=== PATIENT | female | born 1940 | race Caucasian/White ===

== ENCOUNTER → 2024-04-09 15:17 | Outpatient (REF) | payer OTHER, SELFPAY | LOC: RAD 15:17 | PROVIDERS: ATTENDING PHYSICIAN Nurse Practitioner Family | DX: K59.09 Other constipation (principal) | CPT/HCPCS: 74019 ==

== ENCOUNTER 2025-03-15 01:08 | Inpatient (IN) | payer OTHER, SELFPAY ==
[2025-03-14 19:43] VITALS: BP 194/116
--- NOTE | 2025-03-14 21:34 | ED.GENMED ---
History of Present Illness
General
Chief Complaint: Medication Reaction
Source: patient and spouse
Exam Limitations: none
Time Seen by Provider: 03/14/25 21:12
Nursing documentation reviewed up to this point in time: agreed with
History of Present Illness
History of Present Illness:
85-year-old female with a past medical history of hypertension presents to the ER with her for evaluation of headache. Patient makes note that she has had recent issues with dental infection in her left upper molar�she was initially treated
for dental infection with amoxicillin in early January and then subsequently followed up with an prison keeper and was taken for a root canal; after this again was treated with amoxicillin. Has continued to have dental pain on the left and so
yesterday was seen and prescribed Flagyl at 500 mg 3 times daily; took 3 doses yesterday and 2 doses today. She says that today she has been feeling unwell all day. She describes a diffuse headache. She says that she has some stiffness in her
neck and back. She says she has nausea. She says she has a bad taste in her mouth. She has not had a fever. She denies any other acute issues. Came to the ER for assessment.
Past History
Past History
ED Past Medical History: HTN; Negative Asthma, NIDDM or DC
ED Past Surgical History: None
Social History
Tobacco: Non-smoker
Alcohol: None
Personal:
Living: with family
Family History
Family History: Negative Diabetes, Hypertension or CAD
Review of Systems
Review of Systems
All Other Systems: ROS reviewed and negative except as documented in HPI and ROS
Constitutional: Denies fever
Respiratory: Denies trouble breathing
Cardiac: Denies chest pain
ABD/GI: Reports nausea; Denies abdominal pain or vomiting
: Denies flank pain
Musculoskeletal: Reports neck pain and back pain
Skin: Denies itching or rash
Neurological: Reports headache; Denies dizzy
Phy Exam
Physical Exam
Physical Exam:
General: Awake, alert, oriented x3; nontoxic-appearing
Head: Normocephalic, atraumatic
Eyes: Conjunctiva normal, EOMI, pupils equal round and reactive to light bilaterally
Throat: Airway intact, handling secretions; generally good dentition, no swelling noted near left upper molar
Neck: Trachea midline, full range of motion, no meningeal signs, mild tenderness in the paraspinal musculature
Lungs: Clear to auscultation bilaterally, no wheezing, rales, rhonchi
Heart: Regular rate and rhythm, no murmurs, gallops, or rubs appreciated
Neuro: Cranial nerves intact, speech fluid without dysarthria, motor and sensory intact in all extremities
Skin: Warm and dry
Extremities: No edema noted
Scores
Heart Failure Risk
Heart Failure Risk Score: Not Applicable
Heart Score for Chest Pain Patients
STEMI patient?: Not applicable
Withdrawal Assessment of Alcohol
Withdrawal Assessment Completed?: Not applicable
Course
Orders/Labs/Results
Orders:
Orders
03/14/25 21:32
Ketorolac [Toradol] 15 mg IV NOW STA
03/14/25 21:33
CT Facial Bones W/ Iv Contrast Urgent
Comment:
Reason For Exam: left sided dental infection, headache
CT Head W/o Iv Contrast Urgent
Comment:
Reason For Exam: headache
0.9% Sodium Chloride 1000 ml [Nss] 1,000 ml IV BOLUS
03/14/25 21:58
CRP [C-Reactive Protein] Urgent
Complete Blood Count/With Diff Urgent
Comprehensive Metabolic Panel Urgent
ESR [Erythrocyte Sed Rate] Urgent
03/14/25 23:58
Osmolality, Random Urine Urgent
Date Specimen was Collected: 03/14/25
Time Specimen was Collected: 23:56
Urinalysis Reflex To Culture Urgent
Date Specimen was Collected: 03/14/25
Time Specimen was Collected: 23:56
Urine Sodium Urgent
Date Specimen was Collected: 03/14/25
Time Specimen was Collected: 23:56
03/15/25 00:08
Acetaminophen [Tylenol] 1,000 mg PO NOW STA
03/15/25 00:10
Amlodipine [Norvasc] 2.5 mg PO ONCE ONE
Abnormal Lab Results
03/14/25
21:58
RBC 4.17 L 10^6/uL
(4.20-5.40)
Hct 36.5 L %
(37.0-47.0)
MCH 31.7 H pg
(27.0-31.0)
Sodium 124 L mmol/L
(135-145)
Chloride 90 L mmol/L
(98-107)
Glucose 100 H mg/dl
(70-99)
03/14/25 21:58
03/14/25 21:58
Vital Signs
Initial and Last Documented VS:
Initial Vital Signs
Temp Pulse Resp BP Pulse Ox
36.8 C 95 15 194/116 100
03/14/25 19:43 03/14/25 19:43 03/14/25 19:43 03/14/25 19:43 03/14/25 19:43
Last Documented Vital Signs
Temp Pulse Resp BP Pulse Ox
36.8 C 95 15 182/84 100
03/14/25 19:43 03/14/25 19:43 03/14/25 19:43 03/15/25 00:07 03/15/25 00:07
MDM/Problems Addressed
Differential Diagnosis Includes:
Tension headache, medication side effect, meningitis, worsening dental infection, brain bleed/stroke, migraine
MDM/Problems Addressed:
85-year-old female presents for evaluation of headache associated with bad taste in her mouth, nausea, neck and back stiffness. Symptoms started today after initiating treatment with Flagyl yesterday for a dental infection. She is hypertensive but
has otherwise acceptable vital signs. Physical exam is as noted. Suspect this may be a side effect of the Flagyl. She does not necessarily appear meningeal at this point in time despite her report of some neck stiffness. Will plan to check CT to
head and face to rule out signs of significant dental abscess. Will check basic labs. Will treat symptomatically. Reassess after the above.
Labs reviewed: CBC no clinically significant abnormalities. Chemistry however shows significant hyponatremia. Sodium 124 this evening. She has had hyponatremia in the past chronically. She says that her most recent sodium was 134 on outpatient
labs within the past year. Her most recent labs here show a discharge sodium of 130�she had hyponatremia in the setting of a liquid diet when she had prior facial fractures in 2019. Clinically patient says she is feeling a bit better with Toradol,
headache has improved. Awaiting results of CT. Overall if patient still not feeling herself and has significant hyponatremia I would err on the side of admission for correction although suspect her symptoms are more likely related to recent dental
infection and metronidazole. Can send urine studies including sodium and osmolality.
CT head and face no acute abnormalities. Patient's symptoms improved with ER treatment but she still does not feel quite right she still has some achiness and headache. Blood pressure elevated due for her nighttime medicine which we will provide.
Lower suspicion for meningitis at this point with no fever and no leukocytosis or inflammatory marker elevations. In my judgment no indication for emergent LP at this point. Will plan to admit for correction of sodium and blood pressure control
and can reassess need for further workup if symptoms not improving. Discussed case with hospitalist for admission.
*Radiology
Radiology exam reviewed: radiology read reviewed
*Pulse Oximetry
SaO2: 100
Oxygen Mode of Delivery: Room air
Patient hypoxic: no (100%)
*Critical Care Note
Total Time (30-74mins, 75-104mins- exclusive of procedures): Not Applicable
Data Reviewed
Review of Other/Old Records Reveals: Labs and Records
Source: patient and spouse
Patient Management
Discussion with other providers: Hospitalist (Discussed with hospitalist)
Escalation/DeEscalation of care consider admission/obs:
Admission indicated
ED Attending Note
-
Portions of this chart may have been created with voice recognition software.� Occasional wrong word or��sound alike� substitutions may have occurred due to the inherent limitations of voice recognition software.
Discharge Plan
Departure
Patient Disposition: Admit
Date of Disposition: 03/15/25
Time of Disposition: 00:11
Admit to doctor: John
Presentation/result/management discussed w/ accepting MD/DO: Hospitalist
Discharge Problem:
Headache, Hypertension, Hyponatremia
Prescriptions:
No Action
meclizine 25 MG tablet
25 mg PO PRN PRN (Reason: meniere's attack)
Patient Comments:
25mg-50mg before attack
chlorhexidine gluconate 15 ML mouthwash
30 ml PO TID Qty: 30 0RF
acetaminophen 650 MG/20.3 ML solution
650 mg PO Q4HPRN PRN (Reason: mild pain/fever/MAKI) Qty: 400 0RF
amoxicillin-pot clavulanate [Augmentin] 125 MG/5 ML suspension for reconstitution
500 mg PO Q12 Qty: 300 0RF
Rx Instructions:
500 mg (20 ml) every 12 hours for 7 days
amlodipine 2.5 mg Tablet
2.5 mg PO DAILY
Referrals:
Kimo Littlejohn MD [Family Provider, Family Practice]
Interventions
Interventions:
*Risk Screen - Suicide Last Done: 03/14/25 19:43
*General Assessment Last Done: 03/14/25 19:43
*Neglect/Abuse Screening Last Done: 03/14/25 19:43
*ED COVID-19 Vaccine History Last Done: 03/14/25 19:43
*ED Influenza Vaccine History Last Done: 03/14/25 19:43
ED-Skin Assessment Last Done: 03/14/25 21:47
ED- Pulmonary Assessment Last Done: 03/14/25 21:47
ED-EENT Assessment Last Done: 03/14/25 21:47
Discharge Date and Time
Print Language: YORUBA
[2025-03-14] MEDS: TORADOL 15 MG IV (21:57)
[2025-03-14] MEDS: NSS 1000 IV (21:57)
[2025-03-14 22:05] LABS: Hematocrit 36.5 % (37.0-47.0); Hemoglobin 13.2 g/dL (12.0-16.0); Mean Corp Hgb Conc. 36.2 g/dL (33.0-37.0); Mean Corpuscular Volume 87.5 fL (81.0-99.0); Nucleated Red Blood Cells % 0 %; Platelet Count 190 10^3/uL (130-400); Red Cell Dist. Width 12.3 % (11.5-14.5)
[2025-03-14 22:18] LABS: ALT (SGPT) 22 U/L (0-35); AST (SGOT) 33 U/L (14-36); Albumin 4.5 g/dl (3.5-5.0); Alkaline Phosphatase 72 U/L (38-126); Blood Urea Nitrogen 12 mg/dl (7-17); Calcium 9.1 mg/dl (8.4-10.2); Carbon Dioxide 28 mmol/L (22-30); Chloride 90 mmol/L (98-107); Glucose 100 mg/dl (70-99); Potassium 3.6 mmol/L (3.5-5.1); Sodium 124 mmol/L (135-145); Total Protein 6.8 g/dl (6.3-8.2); eGFR > 60.00
[2025-03-14 22:29] LABS: C-Reactive Protein < 5.00 mg/L (0.0-10.00)
[2025-03-15 00:07] VITALS: BP 182/84
[2025-03-15] MEDS: NORVASC 2.5 MG PO ×2 (00:35→09:01)
[2025-03-15] MEDS: TYLENOL 1000 MG PO (00:35)
[2025-03-15 00:45] LABS: Urine Character Clear (Clear)
[2025-03-15 01:00] VITALS: BP 166/84
--- NOTE | 2025-03-15 01:03 | HPS.HSE ---
Family Physician
-
Family Physician: Kimo Littlejohn
Chief Complaint
-
Headache
History of Present Illness
Patient is an 85y F with PMH significant for hypertension and chronic hyponatremia who presents to ED complaining of headache, nausea and malaise. Patient states that she had an abscessed tooth in January of this year. She took a course of
Augmentin followed by a root canal (01/30/25) and then a second course of Augmentin. She has had persistent discomfort at the site (L mandible) since that time. She was recently seen by an [employer] Car Dis[employer] and prescribed a course of Flagyl which she
started yesterday. Patient states that she developed headache, dry mouth and nausea shortly after beginning this medication. She has been drinking increased fluid in attempt to 'wash out' her mouth. She notes that she is urinating more
frequently than usual.
Patient has had persistent headache and nausea and presented to the ED today for further evaluation.
Medical History
Past Medical History
Past Medical History: Reports Other
Additional Past Medical History:
Hypertension
Chronic Hyponatremia
Glaucoma
Macular Degeneration
Meniere's Syndrome
Past Surgical History: Reports Other
Additional Past Surgical History:
Hysterectomy
ORIF Mandible
Social History
Tobacco: Non-smoker
Alcohol: None
Drug: None
Family History
Family History: Not pertinent
Allergies / Home Medications
Allergies reflects when Allergies were last updated in [employer].
Home Medications with original date entered in [employer]
Allergy/Medication List:
Allergies
Allergy/AdvReac Type Severity Reaction Status Date / Time
sulfamethoxazole (From Allergy Rash Verified 12/10/22 22:25
Bactrim)
trimethoprim (From Bactrim) Allergy Rash Verified 12/10/22 22:25
Home Medications
meclizine 25 mg tablet 25 mg PO PRN PRN meniere's attack 03/02/20
amlodipine 2.5 mg tablet 2.5 mg PO DAILY 03/15/25
Review of Systems
-
History Source: Patient
A 12 point ROS was completed and negative except as noted: Yes
Constitutional: Reports Fatigue; Denies Fever or Chills
EENT: Denies Sore Throat
Respiratory: Denies Cough or Trouble Breathing
Cardiac: Denies Chest Pain or Palpitations
Abdomen/GI: Reports Nausea; Denies Abdominal Pain, Vomiting or Diarrhea
: Reports Frequency; Denies Dysuria, Flank Pain, Difficulty Voiding or Urgency
Musculoskeletal: Reports Other (Neck pain); Denies Joint Pain or Edema
Neurological: Reports Headache; Denies Dizzy, Weakness or Numbness
Psych: Denies Depression or Anxiety
Physical Exam
Vital Signs
Vital Signs
Temp Pulse Resp BP Pulse Ox
98.2 F 95 15 182/84 100
03/14/25 19:43 03/14/25 19:43 03/14/25 19:43 03/15/25 00:35 03/15/25 00:07
Physical Exam
General: Other (85y F in no acute distress.)
HEENT: Other (Dry MM. Neck supple.)
Respiratory: Clear; No Wheezes, Rales or Rhonchi
Cardiac: S1/S2 and Regular Rhythm; No Tachycardia
GI: Soft, Non Tender, Non Distended and Normal Bowel Sounds
Musculoskeletal: No Clubbing, No Cyanosis and Other
Neuro: AO x 3 and Nonfocal/grossly intact
Laboratory Results
-
03/14/25 21:58
03/14/25 21:58
Laboratory Results
Total Bilirubin 0.8 mg/dl (0.2-1.3) 03/14/25 21:58
AST 33 U/L (14-36) 03/14/25 21:58
ALT 22 U/L (0-35) 03/14/25 21:58
Alkaline Phosphatase 72 U/L (38-126) 03/14/25 21:58
Impression/Plan
-
A/P: Patient is an 85y F with PMH significant for hypertension and chronic hyponatremia who presents to ED complaining of headache, stiff neck and malaise.
Acute on Chronic Hyponatremia
- Admit for further evaluation and treatment.
- Likely acute component due to dry mouth / nausea from Flagyl and resultant increase in fluid intake.
- Fluid restriction.
- Follow for improvement in Na levels (baseline low 130s).
- Hold further Flagyl.
Headache
- CT head unremarkable.
- Supportive care with pain control / heat applications, etc.
- Follow for clinical improvement.
Dental Abscess
- No abscess noted on CT scan done in the ED.
- s/p root canal 01/30.
- Observe off of further abx. Follow-up with outpatient physicians.
Benign Hypertension
- Uncontrolled. Suspect degree of chronic poor control. Attributes usual elevations to 'white coat hypertension'.
- Increase amlodipine to BID.
- Hydralazine PRN very high BP.
- Records report intolerances to BENTON, ARB, beta-blockers, etc.
DVT Prophylaxis: Lovenox
Code Status: Full
[2025-03-15 02:00] VITALS: BP 134/79
[2025-03-15 02:27] VITALS: BMI 18.2
[2025-03-15 02:29] VITALS: BP 184/89
[2025-03-15] MEDS: APRESOLINE 5 MG IV (02:45)
[2025-03-15 03:56] VITALS: BP 160/76
[2025-03-15 07:35] VITALS: BP 176/85
[2025-03-15 08:30] LABS: Hematocrit 43.2 % (37.0-47.0); Hemoglobin 15.0 g/dL (12.0-16.0); Mean Corp Hgb Conc. 34.7 g/dL (33.0-37.0); Mean Corpuscular Volume 90.0 fL (81.0-99.0); Platelet Count 218 10^3/uL (130-400); Red Cell Dist. Width 12.7 % (11.5-14.5)
--- NOTE | 2025-03-15 08:42 | W.PN.HOSP.TC ---
Today's Communication/Plan
-
d/c
Assessment / Plan
Assessment / Plan
85y F with PMH significant for hypertension and chronic hyponatremia who presents to ED complaining of headache, stiff neck and malaise.
Gen: NAD, AAOx3.
Eyes: EOMI, PERRLA, no scleral icterus.
Neck: supple.
CV: RRR, +S1/S2, no m/r/g.
Resp: CTAB, no rales, wheezes, or rhonchi.
Abd: +BS, soft, NT, ND
Skin: No rashes.
Neuro: CN 2-12 intact, non-focal.
Psych: Normal mood and affect.
CT brain: No evidence of acute intracranial abnormality.
Acute on Chronic Hyponatremia:
-Likely acute component due to dry mouth / nausea from Flagyl and resultant increase in fluid intake.
-cont FR
-Na has improved to 129 (baseline 130)
-holding Flagyl
Headache
- CT head unremarkable.
- Supportive care with pain control / heat applications, etc.
- Follow for clinical improvement.
Dental Abscess
- No abscess noted on CT scan done in the ED.
- s/p root canal 01/30.
- Observe off of further abx. Follow-up with outpatient physicians.
Essential HTN:
-with hypertensive urgency
-Norvasc increased to 2.5mg BID, will d/c on 5mg BID
-IV hydralazine PRN
-records report intolerances to BENTON, ARB, beta-blockers, etc.
FULL/Lovenox
Medically cleared for d/c.
Total time spent on d/c = 31 min. This included today's physical exam, progress note, review of laboratory and diagnostic data, preparation of discharge documents and prescriptions, and discussions about the pt's hospital course and discharge plan
with the patient and other emergency medical technician basic involved in the patient's care.
Anticipated Discharge: Today
Subjective/Interval History
-
Date of Service: March 15, 2025
No new complaints. No neck stiffness currently. Still with some headache.
Objective Data
-
Labs:
Laboratory Results
03/14/25 03/15/25
21:58 08:02
WBC 6.3 5.1
Hgb 13.2 15.0
Hct 36.5 L 43.2
Plt Count 190 218
Sodium 124 L Pending
Potassium 3.6 Pending
Chloride 90 L Pending
Carbon Dioxide 28 Pending
BUN 12 Pending
Creatinine 0.6 Pending
Glucose 100 H Pending
Calcium 9.1 Pending
Total Bilirubin 0.8
AST 33
ALT 22
Alkaline Phosphatase 72
Vital Signs:
Vital Signs
Temp Pulse Resp BP Pulse Ox
98 F 74 16 160/76 99
03/15/25 02:29 03/15/25 03:56 03/15/25 02:29 03/15/25 03:56 03/15/25 02:29
[2025-03-15] MEDS: TYLENOL 650 MG PO (09:00)
[2025-03-15 09:07] LABS: Blood Urea Nitrogen 9 mg/dl (7-17); Calcium 9.3 mg/dl (8.4-10.2); Carbon Dioxide 28 mmol/L (22-30); Chloride 91 mmol/L (98-107); Estimated Creatinine Clearance 55 ml/min; Glucose 157 mg/dl (70-99); Potassium 3.5 mmol/L (3.5-5.1); Sodium 129 mmol/L (135-145); eGFR > 60.00
[2025-03-15 09:35] LABS: Cortisol, Random 15.9 ug/dl
--- NOTE | 2025-03-15 11:01 | CM ---
Addendum entered by Pilar Jones 03/15/25 11:48:
IMM on the chart; signed 03/14/25
Addendum entered by Pilar Jones 03/15/25 11:46:
Per RN, patient discharged to home; no needs; provided transport
Original Note:
Discharged by nursing before assessed by case management
--- NOTE | 2025-03-15 12:51 | W.DCSUMMARY ---
Discharge Summary
Discharge Data
Date of Admission: 03/15/25
Date of Discharge: 03/15/25
-
Pending Results: No
Hospital Course
Primary diagnoses:
Acute on Chronic Hyponatremia
Essential hypertension with hypertensive urgency
Secondary diagnoses:
Headache
Recent dental abscess s/p root canal
Consultants:
None
Imaging:
CT brain: No evidence of acute intracranial abnormality.
85-year-old female who presented earlier today with a chief complaint of headache and was found to have hyponatremia as outlined in the H&P done on admission. Hospital course by problem list:
Acute on Chronic Hyponatremia: Likely acute component was due to dry mouth/nausea from Flagyl and resultant increase in fluid intake. The patient was placed on a fluid restriction and her sodium improved from 124 to 129 (baseline 130). Flagyl was
stopped.
Essential hypertension with hypertensive urgency: The patient's home Norvasc was increased to 5 mg twice daily.
Discharge Plan
-
Patient Disposition: Home (Routine Discharge)
Discharge Diagnosis/Procedures: Hyponatremia, hypertensive urgency
Condition: Good
Diet: Other diet
Additional Diets: fluid restrict to 1200cc/day
Activity: As tolerated
Driving Restrictions: As prior to admission
Blood Work: bmp in 3-4 days, script from PCP
Referrals:
Kimo Littlejohn MD [Family Provider, [facility]] - in less than 1 week
Prescriptions:
New
amlodipine [Norvasc] 5 mg tablet
5 mg PO BID Qty: 60 0RF
Continued
meclizine 25 MG tablet
25 mg PO PRN PRN (Reason: meniere's attack)
Patient Comments:
25mg-50mg before attack
Discontinued
amlodipine 2.5 mg Tablet
2.5 mg PO DAILY
Discharge Orders:
Discharge Patient (As Directed); Ordered 03/15/25
Ordered By: Josue Grey
Discharge Date and Time
Discharge Date/Time: 03/15/25 10:46
Print Language: GREENLANDIC
== END 2025-03-15 10:46 | disposition home or self-care (01) | DRG 641 ==
LOC: 4 EAST ACU 01:08
PROVIDERS: ADMITTING PHYSICIAN Hospitalist; ATTENDING PHYSICIAN Internal Medicine; EMERGENCY PHYSICIAN Emergency Medicine; FAMILY PHYSICIAN Family Medicine
DX: E87.1 Hypo-osmolality and hyponatremia (principal); I16.0 Hypertensive urgency; I10 Essential (primary) hypertension; R51.9 Headache, unspecified; T37.3X5A Adverse effect of other antiprotozoal drugs, initial encounter; H35.30 Unspecified macular degeneration; H40.9 Unspecified glaucoma; H81.09 Meniere's disease, unspecified ear; Z79.899 Other long term (current) drug therapy
CPT/HCPCS: 70450; 70487; 80048; 80053; 81003; 82533; 83935; 84300; 84443; 85025; 85027; 85652; 86140; 96361; 96374; 99285; Q9967